=== PATIENT | female | born 1980 | race Caucasian/White ===

== ENCOUNTER 2018-03-04 17:54 | Emergency (ER) | payer BC ==
[2018-03-04] MEDS ORDERED: LIDOCAINE/PRILOCAINE 5 GM TUBE TP ONE (18:35)
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
[2018-03-04] MEDS ORDERED: TRIMETH/SULFA DS 160-800MG TAB PO ONE (19:55)
[2018-03-04] MEDS ORDERED: ACET/HYDROC 5/325MG TH ER ONLY 2 TAB/BOTTLE PO ONE (19:55)
[2018-03-04] MEDS ORDERED: LOR5/325 PO (20:00)
[2018-03-04] MEDS ORDERED: SULF-198 PO (20:00)
[2018-03-04] MEDS ORDERED: BACITRACIN OINT 0.9 GM PKT TP ONE (20:06)
[2018-03-04 20:07] VITALS: BP 121/74
== END 2018-03-04 20:07 | disposition home or self-care (01) ==
LOC: ER 18:39
DX: T22.212A Burn of second degree of left forearm, initial encounter (principal); T23.202A Burn of second degree of left hand, unspecified site, initial encounter; T31.0 Burns involving less than 10% of body surface; X11.8XXA Contact with other hot tap-water, initial encounter
CPT/HCPCS: 16020; 99283; C9399